=== PATIENT | male | born 1965 | race African-American/Black ===

== ENCOUNTER 2021-06-13 13:52 | Emergency (ER) | payer SELFPAY ==
[~2021-06-13] VITALS: Ht 188 cm; Wt 82.0 kg
[2021-06-13 14:00] VITALS: BP 141/97
[2021-06-13 14:53] LABS: BASOPHILS % 0.2 % (0.0-2.0); EOSINOPHILS % 0.4 % (0.0-5.0); HEMATOCRIT. 44.4 % (42.0-52.0); HEMOGLOBIN. 14.6 g/dL (14.0-18.0); LYMPHOCYTES % 7.6 % (20.0-50.0); MEAN CORPUSCULAR HEMOGLOBIN 27.8 pg (28.0-32.0); MEAN CORPUSCULAR VOLUME 84.5 fL (80.0-94.0); MONOCYTES % 5.5 % (2.0-8.0); NEUTROPHILS % 86.3 % (40.0-76.0); PLATELET 505 x1000/uL (130-400); RED BLOOD CELL COUNT 5.26 mill/uL (4.7-6.1); RED CELL DISTRIBUTION WIDTH 15.6 % (11.6-14.6)
[2021-06-13] MEDS ORDERED: LORAZEPAM 1MG TABLET PO ONE (15:00)
[2021-06-13 15:02] LABS: CHLORIDE 106 mEq/L (98-107)
[2021-06-13 15:09] LABS: ETHANOL BLOOD < 10 mg/dL
[2021-06-13 16:11] LABS: *AMPHETAMINES SCREEN URINE NEGATIVE (NEGATIVE); *BARBITURATES SCREEN URINE NEGATIVE (NEGATIVE); *BENZODIAZEPINES SCREEN URINE NEGATIVE (NEGATIVE); *COCAINE SCREEN URINE PRESUMTIVE POSITIVE (NEGATIVE); METHADONE URINE SCREEN NEGATIVE (NEGATIVE); OPIATES URINE SCREEN NEGATIVE (NEGATIVE); PHENCYCLIDINE URINE SCREEN NEGATIVE (NEGATIVE)
[2021-06-13 16:12] LABS: CANNABINOID URINE SCREEN PRESUMTIVE POSITIVE (NEGATIVE)
[2021-06-13] MEDS ORDERED: IBUP-2030 MT (17:01)
== END 2021-06-13 17:38 | disposition home or self-care (01) ==
LOC: ER 13:52
DX: M75.32 Calcific tendinitis of left shoulder (principal); M25.512 Pain in left shoulder; I10 Essential (primary) hypertension; Z94.5 Skin transplant status; Z98.890 Other specified postprocedural states
CPT/HCPCS: 36415; 71045; 73030; 80053; 80305; 80320; 83880; 84484; 85025; 93005; 99285; G0480

== ENCOUNTER → 2021-10-11 | Emergency (ER) | payer OTHER ==
[~2021-10-11] VITALS: Ht 188 cm; Wt 82.0 kg
[~2021-10-11] MED LIST: IBUP-2030 MT; IBUPROFEN 600MG TABLET PO NR
== END ==
LOC: ER 03:07
DX: S70.02XA Contusion of left hip, initial encounter (principal); X58.XXXA Exposure to other specified factors, initial encounter; Y93.9 Activity, unspecified; Y92.9 Unspecified place or not applicable
CPT/HCPCS: 73502; 99283